=== PATIENT | male | born 1960 | race Caucasian/White ===

== ENCOUNTER 2017-05-14 00:21 | Emergency (ER) | payer SELFPAY ==
[2017-05-14] MEDS ORDERED: Diphtheria,Pertussis(Acell),Tetanus Vaccine 0.5 ML Syringe IM ONE (00:31)
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
[2017-05-14] MEDS ORDERED: Ketorolac 60 MG/2 ML SDV IM ONE (02:26)
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
== END 2017-05-14 02:45 | disposition home or self-care (01) ==
LOC: MW.ED 00:21
DX: S06.0X1A Concussion with loss of consciousness of 30 minutes or less, initial encounter (principal); S09.90XA Unspecified injury of head, initial encounter; S00.83XA Contusion of other part of head, initial encounter; Y04.0XXA Assault by unarmed brawl or fight, initial encounter; Z23 Encounter for immunization
CPT/HCPCS: 70450; 70486; 90471; 90715; 96372; 99283; J1885; 99285